=== PATIENT | male | born 1965 | race Caucasian/White ===

== ENCOUNTER 2022-05-15 09:36 | Emergency (ER) | payer OTHER, SELFPAY ==
[2022-05-15] VITALS (12 sets, daily range): BP systolic 157–196; BP diastolic 78–105; PULSE 66–85; RESP 14–22; TEMP 36; O2SAT 91–99; BMI 30.8
--- NOTE | 2022-05-15 09:38 | DI.RAD.S_ITS ---
PROCEDURE: XR CHEST 1V INDICATIONS: chest pain TECHNIQUE: One view of the chest was acquired. COMPARISON: None. FINDINGS: Surgical changes and devices: None. Lungs and pleura: Low lung volumes. No dense consolidation or pleural effusion. Mediastinum: Mediastinal contours appear normal. Heart size is normal. Bones and chest wall: No suspicious bony lesions. Overlying soft tissues appear unremarkable. IMPRESSION: No acute radiographic abnormality. Low lung volumes limiting evaluation. Dictated by: Niraj Duran M.D. on 05/15/2022 at 10:18 Approved by: Niraj Duran M.D. on 05/15/2022 at 10:19
--- NOTE | 2022-05-15 09:46 | ED_ITS ---
HPI - General Adult General Chief complaint: Chest Pain Stated complaint: chest pain Time Seen by Provider: 05/15/22 09:38 Source: patient Mode of arrival: Ambulatory Limitations: no limitations History of Present Illness HPI narrative: Patient is a 56-year-old male who initially arrived with complaint of chest pain however during further evaluation it appears to be the right upper quadrant/right lower chest/right back discomfort. Patient states it has been going on for the past 4 days. It appears to be intermittent. He thought this morning when he drank some coffee his symptoms improved. At the time of my evaluation he is not having any symptoms. No change in bowel habits. No urinary symptoms. Pain does not radiate anywhere. Has not tried anything for the symptoms prior to arrival. He does have a history of hypertension. He did take his blood pressure medicines this morning. Related Data Allergies Allergy/AdvReac Type Severity Reaction Status Date / Time PENICILLIN Allergy Unknown UNKNOWN Uncoded 06/14/17 12:12 Review of Systems Constitutional Constitutional: Reports system reviewed and no additional complaints, except as documented Cardiovascular Cardiovascular: Reports system reviewed and no additional complaints, except as documented Respiratory Respiratory: Reports system reviewed and no additional complaints, except as documented Gastrointestinal Gastrointestinal: Reports system reviewed and no additional complaints, except as documented Genitourinary Genitourinary: Reports system reviewed and no additional complaints, except as documented Hematologic/Lymphatic On Anticoagulants: No Exam Initial Vital Signs Initial Vital Signs: Vital Signs Pulse Oximetry 91 05/15/22 09:39 Const General: cooperative and healthy appearing HENMT Head: normal to inspection and normocephalic Resp Effort & Inspection: normal respiratory effort Auscultation: clear to auscultation bilaterally Cardio Rate: regular rate Rhythm: regular rhythm GI Inspection: normal to inspection and non-distended Palpation: soft, No firm, No guarding and tender (Right upper quadrant) Back/Spine/Pelvis Back: No CVA tenderness Skin General: no rashes or lesions noted Neuro General: patient alert and patient awake Extrem General: No edema Course Orders Ordered: ED Orders 05/15/22 09:38 XR chest 1V Stat 05/15/22 09:47 EKG-12 Lead Stat 05/15/22 09:50 Complete Blood Count AUTO DIFF Stat Comprehensive Metabolic Panel Stat Lipase Stat 05/15/22 10:37 US abdomen limited Stat Vital Signs Vital signs: Vital Signs - 8 hr 05/15/22 09:44 05/15/22 09:39 05/15/22 09:40 Temperature 96.8 F L Pulse Rate 85 82 Respiratory Rate 16 Blood Pressure 196/103 H Pulse Oximetry 99 91 96 Oxygen Delivery Method Room Air 05/15/22 09:40 05/15/22 10:00 05/15/22 10:05 Temperature Pulse Rate 79 79 Respiratory Rate 21 22 Blood Pressure 196/103 H Pulse Oximetry 96 96 Oxygen Delivery Method Room Air 05/15/22 10:05 05/15/22 10:30 05/15/22 10:30 Temperature Pulse Rate 72 Respiratory Rate 14 Blood Pressure 183/105 H 165/87 H Pulse Oximetry 97 Oxygen Delivery Method 05/15/22 11:00 05/15/22 11:00 Temperature Pulse Rate 70 Respiratory Rate 16 Blood Pressure 157/89 H Pulse Oximetry 96 Oxygen Delivery Method Medical Decision Making Lab Data Lab results reviewed: Yes I reviewed the patient's lab results. 05/15/22 09:50 05/15/22 09:50 Labs: Lab Results 05/15/22 05/15/22 Range/Units 09:50 09:50 WBC 8.3 (4.5-11.0) X10^3/uL RBC 5.47 (4.5-5.9) X10^6/uL Hgb 16.9 (13.5-17.5) g/dL Hct 49.0 (41-53) % MCV 89.4 (80-100) fL MCH 30.8 (26-34) PG MCHC 34.4 (30-36) % RDW 13.7 (11.6-14.8) % Plt Count 304 (150-400) X10^3/uL Neut % (Auto) 48.4 L (50-75) % Lymph % (Auto) 37.0 (25-40) % Beauregard % (Auto) 9.1 (3-14) % Eos % (Auto) 4.9 H (2-4) % Baso % (Auto) 0.6 (0-2) % Neut # (Auto) 4000 (5719-1027) /uL Lymph # (Auto) 3100 (7669-0259) /uL Bea[place]gard # (Auto) 800 (0-900) /uL Eos # (Auto) 400 (0-450) /uL Baso # (Auto) 100 (0-100) /uL Sodium 137 (137-145) mmol/L Potassium 4.0 (3.4-5.1) mmol/L Chloride 100 (98-107) mmol/L Carbon Dioxide 28 (22-32) mmol/L BUN 16 (9-20) mg/dL Creatinine 1.00 (0.66-1.25) mg/dL Estimated GFR > 60 (>60) mL/min BUN/Creatinine Ratio 16.0 (6-22) Glucose 106 H (70-100) mg/dL Calcium 9.3 (8.4-10.2) mg/dL Total Bilirubin 0.7 (0.2-1.3) mg/dL AST 46 (17-59) IU/L ALT 88 H (<50) IU/L Alkaline Phosphatase 72 (38-126) U/L Total Protein 9.1 H (6.3-8.2) g/dL Albumin 5.2 H (3.5-5.0) g/dL Globulin 3.9 (1.7-4.1) g/dL Albumin/Globulin Ratio 1.3 (1.0-2.8) Lipase 68 (23-300) U/L Imaging Data Chest x-ray: Radiologist's Impression: PROCEDURE:? XR CHEST 1V ? INDICATIONS:? chest pain ? TECHNIQUE:? One view of the chest was acquired.? ? COMPARISON:? None. ? FINDINGS:? ? Surgical changes and devices:? None.? ? Lungs and pleura:? Low lung volumes.? No dense consolidation or pleural effusion. ? Mediastinum:? Mediastinal contours appear normal.? Heart size is normal.? ? Bones and chest wall:? No suspicious bony lesions.? Overlying soft tissues appear unremarkable.? ? IMPRESSION:? No acute radiographic abnormality.? Low lung volumes limiting evaluation. US - abdomen: Radiologist's Impression: PROCEDURE:? US ABDOMEN LIMITED ? INDICATIONS:? RUQ pain eval for GB pathology ? TECHNIQUE:? Real-time scanning was performed of the abdominal and retroperitoneal organs, with image documentation.? ? COMPARISON:? None. ? FINDINGS:? ? Liver:? Liver is normal in size with increased echotexture consistent with hepatic steatosis.? ? Gallbladder:? No gallstones are identified.? No wall thickening or pericholecystic fluid. ? ? Biliary ducts:? Intrahepatic bile ducts are non-dilated.? Extrahepatic bile duct caliber measures 3.7 mm.? Normal is 6-7 mm or less in diameter, or 10 mm or less post-cholecystectomy.? ? Pancreas:? Visualized portions of the pancreas are sonographically normal.? ? IMPRESSION:? 1. No acute ultrasound abnormality. 2. Hepatic steatosis. ECG Data Attestation: I personally reviewed and interpreted this ECG as follows: Interpretation: Sinus rhythm Ventricular rate is 75 First-degree AV block SC interval to 1 6 Normal QRS Normal QTC Normal axis No ST T wave changes MDM Narrative Medical decision making narrative: Patient's symptoms are right upper quadrant. Low suspicion for ACS. Chest x- ray does not show any signs of a right lower lobe pneumonia. Symptoms are also not consistent with pyelonephritis/kidney stone. Liver function tests unremarkable. Right upper quadrant ultrasound is negative. Labs are unremarkable. No skin changes concerning for zoster. Unsure the exact etiology however after discussion with the patient we will hold on any CT scan for now. No emergent/infectious process noted. Will discharge patient home with return precautions. He expressed understanding and agreement. Discharge Plan Departure Patient Disposition: Home Clinical Impression: Abdominal pain Instructions: DI for Abdominal Pain-Adult Activity Restrictions/Additional Instructions: Your workup here in the emergency department is very reassuring and does not show any signs of an infectious or surgical cause of your symptoms. I recommend that you contact your primary doctor for a follow-up. Return to the emergency department for any new symptoms. Referrals: Franca Pinto PA-C [Primary Care Provider] - Stand Alone Forms: Patient Portal/API
[2022-05-15 09:56] LABS: Add Manual Diff / Slide Review NO; Basophils Absolute Auto 100 /uL (0-100); Basophils Percent Auto 0.6 % (0-2); Eosinophils Absolute Auto 400 /uL (0-450); Eosinophils Percent Auto 4.9 % (2-4); Hemoglobin 16.9 g/dL (13.5-17.5); Lymphocytes Absolute Auto 3100 /uL (1100-4500); Mean Corpuscular HGB Conc 34.4 % (30-36); Mean Corpuscular Hemoglobin 30.8 PG (26-34); Mean Corpuscular Volume 89.4 fL (80-100); Monocytes Absolute Auto 800 /uL (0-900); Monocytes Percent Auto 9.1 % (3-14); Neutrophils Absolute Auto 4000 /uL (1500-7000); Neutrophils Percent Auto 48.4 % (50-75); Platelet Count 304 X10^3/uL (150-400); Red Blood Cell Count 5.47 X10^6/uL (4.5-5.9); Red Cell Distribution Width 13.7 % (11.6-14.8); White Blood Cell Count 8.3 X10^3/uL (4.5-11.0)
[2022-05-15 10:04] LABS: Alanine Aminotransferase 88 IU/L (<50); Albumin 5.2 g/dL (3.5-5.0); Albumin Globulin Ratio 1.3 (1.0-2.8); Alkaline Phosphatase 72 U/L (38-126); Aspartate Aminotransferase 46 IU/L (17-59); Bilirubin Total 0.7 mg/dL (0.2-1.3); Blood Urea Nitrogen 16 mg/dL (9-20); Calcium 9.3 mg/dL (8.4-10.2); Carbon Dioxide 28 mmol/L (22-32); Chloride 100 mmol/L (98-107); Estimated Glomerular Filt Rate > 60 mL/min (>60); Globulin 3.9 g/dL (1.7-4.1); Glucose 106 mg/dL (70-100); HEMOLYSIS < 15 (0-50); Lipase 68 U/L (23-300); Sodium 137 mmol/L (137-145); Total Protein 9.1 g/dL (6.3-8.2)
--- NOTE | 2022-05-15 10:37 | DI.US.S_ITS ---
PROCEDURE: US ABDOMEN LIMITED INDICATIONS: RUQ pain eval for GB pathology TECHNIQUE: Real-time scanning was performed of the abdominal and retroperitoneal organs, with image documentation. COMPARISON: None. FINDINGS: Liver: Liver is normal in size with increased echotexture consistent with hepatic steatosis. Gallbladder: No gallstones are identified. No wall thickening or pericholecystic fluid. Biliary ducts: Intrahepatic bile ducts are non-dilated. Extrahepatic bile duct caliber measures 3.7 mm. Normal is 6-7 mm or less in diameter, or 10 mm or less post-cholecystectomy. Pancreas: Visualized portions of the pancreas are sonographically normal. IMPRESSION: 1. No acute ultrasound abnormality. 2. Hepatic steatosis. Dictated by: Jose Ortega M.D. on 05/15/2022 at 11:46 Approved by: Jose Ortega M.D. on 05/15/2022 at 11:47
== END 2022-05-15 13:32 | disposition home or self-care (01) ==
PROVIDERS: Emergency Provider Emergency Medicine; PCP Physician Assistant
DX: R10.11 Right upper quadrant pain (principal); R07.9 Chest pain, unspecified
CPT/HCPCS: 36415; 71045; 76705; 80053; 83690; 85025; 93005; 93010; 99284